=== PATIENT | male | born 1950 | race Caucasian/White ===

== ENCOUNTER 2017-08-07 20:30 | Outpatient (CLI) | payer OTHER, BC ==
--- OUTSIDE RECORDS SUMMARY | 2017-08-08 08:58 | XMS | Clinical Summary ---
:1950 Author Organization [facility] Address [address] [place] [address] Phone Care Team Providers Name Role Phone , Primary Care Provider Unavailable Allergies Not on File Current Medications Not on file Active Problems Not on file Social History Tobacco Use Types Packs/Day Years Used Date Never Assessed Sex Assigned at Date Recorded Not on file Last Filed Vital Signs Not on file Plan of Treatment Not on file Results Not on filefrom Last 3 Months
== END 2017-08-07 20:31 | disposition home or self-care (01) ==
LOC: SLEEPLAB 20:30
PROVIDERS: ATTEND Internal Medicine Critical Care Medicine
DX: G47.33 Obstructive sleep apnea (adult) (pediatric) (principal); G47.31 Primary central sleep apnea; E66.9 Obesity, unspecified; R06.3 Periodic breathing
CPT/HCPCS: 95811

== ENCOUNTER 2017-08-17 20:30 | Outpatient (CLI) | payer OTHER, BC ==
--- OUTSIDE RECORDS SUMMARY | 2017-08-29 02:54 | XMS | Clinical Summary ---
:1950 Author Organization [facility] Address [address] [place] [address] Phone Care Team Providers Name Role Phone [...]
== END 2017-08-17 20:31 | disposition home or self-care (01) ==
LOC: SLEEPLAB 20:30
PROVIDERS: ATTEND Internal Medicine Critical Care Medicine
DX: G47.33 Obstructive sleep apnea (adult) (pediatric) (principal)
CPT/HCPCS: 95811

== ENCOUNTER 2022-08-06 18:00 | Outpatient (CLI) | payer MEDICARE, BC | END 2022-08-06 18:01 | disposition home or self-care (01) | LOC: SLEEPLAB 18:00 | PROVIDERS: ATTEND Internal Medicine Critical Care Medicine | DX: G47.33 Obstructive sleep apnea (adult) (pediatric) (principal); R06.83 Snoring | CPT/HCPCS: 95800 ==

== ENCOUNTER 2023-10-20 07:16 | Outpatient (CLI) | payer BC, MEDICARE | END 2023-10-20 07:17 | disposition home or self-care (01) | LOC: BICULT 07:16 | PROVIDERS: ATTEND Otolaryngology Plastic Surgery within the Head & Neck | DX: E04.1 Nontoxic single thyroid nodule (principal) | CPT/HCPCS: 76536 ==

== ENCOUNTER 2024-04-07 07:03 | Outpatient (CLI) | payer MEDICARE | END 2024-04-07 07:04 | disposition home or self-care (01) | LOC: BICULT 07:03 | PROVIDERS: ATTEND Otolaryngology Plastic Surgery within the Head & Neck | DX: E04.2 Nontoxic multinodular goiter (principal) | CPT/HCPCS: 76536 ==